=== PATIENT | female | born 1945 | race Caucasian/White ===

== ENCOUNTER → 2016-10-23 | Outpatient (CLI) | payer MEDICARE, BC ==
[~2016-10-23] MED LIST: ALLEGRA ALLERGY60 MG PO; GLUCOPHAGE XR500 M1 PO; HCTZ 25MG TAB25 MG PO; LIPITOR 10MG10 MG PO; PRIL40 PO; ZESTRIL 20MG TA20 MG PO
== END ==
LOC: MC.RAD 10-16 09:40
DX: Z12.31 Encounter for screening mammogram for malignant neoplasm of breast (principal); D24.2 Benign neoplasm of left breast

== ENCOUNTER 2017-02-03 09:27 | Emergency (ER) | payer MEDICARE, BC ==
[~2017-02-03] VITALS: Ht 154.9 cm; Wt 68.2 kg
[2017-02-03 09:32] VITALS: TEMP 98.7
[2017-02-03 10:29] LABS: BASO % 0.3 % (0.0-2.0); EOS # 0.1 (0.0-0.7); EOS % 1.1 % (0-4.0); GRAN # 4.7 (1.4-6.5); GRAN % 62.8 % (42.2-75.2); HEMATOCRIT 41.4 % (37.0-47.0); LYMPH # 1.9 (1.2-3.4); LYMPH % 25.3 % (20.0-51.0); MEAN CELL VOLUME 93 fl (80.0-100.0); MEAN CORPUSCULAR HEMOGLOBIN 31 pg (27.0-31.0); MEAN CORPUSCULAR HGB CONC 34 g/dl (33.0-37.0); MEAN PLATELET VOLUME 8.5 fl (7.4-10.4); MONO # 0.8 (0.1-0.6); MONO % 10.2 % (1.7-9.3); PLATELET COUNT 302 K/mm3 (130-400); RED BLOOD COUNT 4.47 M/mm3 (4.10-5.30); REDCELL DISTRIBUTION WIDTH-CV 12.4 % (11.5-14.5); WHITE BLOOD COUNT 7.4 K/mm3 (4.8-10.8)
[2017-02-03 10:54] LABS: PH 6 (5-8); SQUAMOUS EPITHELIAL 0-2 /hpf; URINE APPEARANCE Clear; URINE BACTERIA None Seen /hpf; URINE BILIRUBIN Negative (NEGATIVE); URINE BLOOD Negative (NEGATIVE); URINE COLOR Yellow; URINE GLUCOSE Negative (NEGATIVE); URINE KETONE Negative (NEGATIVE); URINE RBC 0-2 /hpf; URINE UROBILINOGEN Negative (NEGATIVE); URINE WBC 0-2 /hpf
[2017-02-03 10:54] LABS: ADJUSTED CALCIUM 9.2 mg/dL (8.4-10.2); ALBUMIN 4.2 gm/dL (3.5-5.0); CALCIUM 9.4 mg/dL (8.4-10.2); CREATININE, serum 0.6 mg/dL (0.52-1.25); POTASSIUM 3.3 mmol/L (3.4-5.0); TOTAL PROTEIN 7.1 gm/dL (6.4-8.2)
[2017-02-03 11:22] VITALS: BP 132/80; PULSE 80
== END 2017-02-03 11:26 | disposition home or self-care (01) ==
LOC: COL.ER 09:27
PROVIDERS: Family Medicine
DX: R10.11 Right upper quadrant pain (principal)
CPT/HCPCS: J2405; J7030

== ENCOUNTER → 2018-02-18 | Outpatient (CLI) | payer MEDICARE, BC | LOC: MC.RAD 09:40 | DX: Z12.31 Encounter for screening mammogram for malignant neoplasm of breast (principal) ==

== ENCOUNTER 2019-01-21 06:57 | Emergency (ER) | payer MEDICARE, BC ==
[~2019-01-21] VITALS: Ht 154.9 cm; Wt 68.2 kg
[2019-01-21 07:06] VITALS: BP 139/54; TEMP 98.9
[2019-01-21 07:23] LABS: COLLECTION METHOD CLEAN CATCH
[2019-01-21 07:39] LABS: PH 6 (5-8); SQUAMOUS EPITHELIAL None Seen /hpf; URINE APPEARANCE Cloudy; URINE BACTERIA None Seen /hpf; URINE BILIRUBIN Negative (NEGATIVE); URINE BLOOD 2+ (NEGATIVE); URINE GLUCOSE 1+ (NEGATIVE); URINE KETONE Negative (NEGATIVE); URINE LEUKOCYTE ESTERASE 1+ (NEGATIVE); URINE NITRATE Negative (NEGATIVE); URINE PROTEIN(semi-quant) 2+ (NEGATIVE); URINE RBC >50 /hpf; URINE UROBILINOGEN Negative (NEGATIVE)
[2019-01-21 07:40] LABS: URINE COLOR Red
[2019-01-21] MEDS ORDERED: OMNICEF 300MG300 MG PO (07:51)
[2019-01-21 08:09] LABS: BASO % 0.1 % (0.0-2.0); EOS # 0.1 (0.0-0.7); EOS % 0.5 % (0-4.0); GRAN # 11.8 (1.4-6.5); GRAN % 77.7 % (42.2-75.2); HEMATOCRIT 40.5 % (37.0-47.0); LYMPH # 1.9 (1.2-3.4); LYMPH % 12.2 % (20.0-51.0); MEAN CELL VOLUME 91 fl (80.0-100.0); MEAN CORPUSCULAR HEMOGLOBIN 31 pg (27.0-31.0); MEAN CORPUSCULAR HGB CONC 35 g/dl (33.0-37.0); MEAN PLATELET VOLUME 8.3 fl (7.4-10.4); MONO # 1.4 (0.1-0.6); MONO % 9.1 % (1.7-9.3); PLATELET COUNT 358 K/mm3 (130-400); RED BLOOD COUNT 4.47 M/mm3 (4.10-5.30); REDCELL DISTRIBUTION WIDTH-CV 12.5 % (11.5-14.5)
[2019-01-21 08:19] LABS: ALBUMIN 4.1 gm/dL (3.5-5.0); BILIRUBIN,TOTAL 1.1 mg/dL (0.0-1.0); CALCIUM 9.4 mg/dL (8.4-10.2); CREATININE, serum 0.53 (0.52-1.25); POTASSIUM 3.1 mmol/L (3.4-5.0); TOTAL PROTEIN 7.5 gm/dL (6.4-8.2)
[2019-01-21] MEDS ORDERED: ALLEGRA 180MG180 MG PO (08:39)
[2019-01-21] MEDS ORDERED: PRINIVIL10 MG PO (08:39)
[2019-01-21] MEDS ORDERED: NATURAL IRON65 MG PO (08:40)
[2019-01-21] MEDS ORDERED: ASPIRIN 81M81 MG/TA2 PO (08:40)
[2019-01-21] MEDS ORDERED: GLUCOPHAGE1000 MG PO (08:41)
[2019-01-21 08:59] VITALS: PULSE 98
== END 2019-01-21 08:58 | disposition home or self-care (01) ==
LOC: COL.ER 06:57
PROVIDERS: Emergency Medicine
DX: N30.91 Cystitis, unspecified with hematuria (principal); I10 Essential (primary) hypertension; E78.5 Hyperlipidemia, unspecified; Z79.82 Long term (current) use of aspirin; Z90.49 Acquired absence of other specified parts of digestive tract; Z98.51 Tubal ligation status

== ENCOUNTER → 2019-06-10 | Outpatient (CLI) | payer MEDICARE, BC ==
[~2019-06-10] MED LIST changes: +ALLEGRA 180MG180 MG PO; +ASPIRIN 81M81 MG/TA2 PO; +GLUCOPHAGE1000 MG PO; +NATURAL IRON65 MG PO; +OMNICEF 300MG300 MG PO; +PRINIVIL10 MG PO
== END ==
LOC: MC.RAD 09:38
DX: Z12.31 Encounter for screening mammogram for malignant neoplasm of breast (principal); Z98.890 Other specified postprocedural states

== ENCOUNTER → 2020-06-15 | Outpatient (CLI) | payer MEDICARE, BC | LOC: MC.RAD 09:56 | DX: Z12.31 Encounter for screening mammogram for malignant neoplasm of breast (principal) ==

== ENCOUNTER 2020-10-22 15:00 | Outpatient (RCR) | payer MEDICARE, BC | END 2021-01-12 | disposition still patient (30) | LOC: MKS.ESL.PT | DX: H81.13 Benign paroxysmal vertigo, bilateral (principal) ==

== ENCOUNTER 2021-07-14 13:29 | Outpatient (CLI) | payer MEDICARE, BC ==
[~2021-07-14] VITALS: Ht 154.9 cm; Wt 71.4 kg
[2021-07-14 14:15] VITALS: BP 157/83; PULSE 76; TEMP 98.3
== END 2021-07-14 15:13 ==
LOC: EUO 13:29
DX: M81.0 Age-related osteoporosis without current pathological fracture (principal)
CPT/HCPCS: J3489

== ENCOUNTER → 2021-08-11 | Outpatient (CLI) | payer MEDICARE, BC | LOC: MC.RAD 09:15 | DX: Z12.31 Encounter for screening mammogram for malignant neoplasm of breast (principal) ==

== ENCOUNTER 2023-07-20 10:45 | Outpatient (CLI) | payer MEDICARE, BC ==
[~2023-07-20] VITALS: Ht 154.9 cm; Wt 71.8 kg
[~2023-07-20 10:45] MED LIST changes: +CRESTOR 10MG10 MG PO
[2023-07-20 11:00] VITALS: BP 133/63; PULSE 88; TEMP 98.1
[2023-07-20] MEDS ORDERED: RECLAST5 MG/100 M IV (11:05)
--- NOTE | 2023-07-20 11:40 | NUR ---
Pt tolerated reclast without issue. IV DC'd, site wrapped with coban. Pt exits dept with steady gait. Free of complaints at time of discharge.
== END 2023-07-20 11:40 | disposition home or self-care (01) ==
LOC: EUO 10:45
DX: M81.0 Age-related osteoporosis without current pathological fracture (principal)
CPT/HCPCS: J3489

== ENCOUNTER → 2024-03-04 | Outpatient (CLI) | payer MEDICARE, BC ==
[2006-02-28 08:05] VITALS: BP 131/84; PULSE 70; TEMP 97.8
[~2024-03-04] MED LIST changes: +RECLAST5 MG/100 M IV
== END ==
LOC: MC.RAD 08:54
DX: Z12.31 Encounter for screening mammogram for malignant neoplasm of breast (principal)